=== PATIENT | male | born 1995 | race Caucasian/White ===

== ENCOUNTER 2017-05-02 02:08 | Emergency (ER) | payer OTHER ==
[2017-05-02 02:42] LABS: HEMATOCRIT 40.2 % (37.9-51.0); HEMOGLOBIN 14.2 g/dL (13.5-17.0); HGB HCT DIFFERENCE 2.4; MEAN CORPUSCULAR VOLUME 84 fl (80-97); RED BLOOD COUNT 4.81 10^6/uL (4.35-5.55); WHITE BLOOD COUNT 5.7 10^3/uL (4.0-10.5)
[2017-05-02 02:43] LABS: ABSOLUTE BASOPHILS # (AUTO) 0.1 10^3/uL (0.0-0.2); ABSOLUTE LYMPHOCYTES (AUTO) 1.7 10^3/uL (0.5-4.7); ABSOLUTE MONOCYTES (AUTO) 0.5 10^3/uL (0.1-1.4); ABSOLUTE NEUT (AUTO) 3.4 10^3/uL (1.7-8.2); BASOPHILS % (AUTO) 0.9 % (0-2); EOSINOPHILS % (AUTO) 0.5 % (0-6); LYMPHOCYTES % (AUTO) 30.5 % (13-45); MEAN CORPUSCULAR HEMOGLOBIN 29.4 pg (27.0-33.4); MEAN CORPUSCULAR HGB CONC 35.2 g/dL (32.0-36.0); MONOCYTES % (AUTO) 9.1 % (3-13); RED CELL DISTRIBUTION WIDTH 15.4 % (11.5-14.0)
--- NOTE | 2017-05-02 02:46 | ER Document Report ---
ED Psych Disorder / Suicide - General Chief Complaint: Overdose Stated Complaint: POSSIBLE OVERDOSE Time Seen by Provider: 05/02/17 02:44 Mode of Arrival: Stretcher Information source: Relative TRAVEL OUTSIDE OF THE U.S. IN LAST 30 DAYS: No - HPI Patient complains to provider of: Overdose Onset was: Cannot confirm Suicide Risk Factors: Depressed, Lack of social support, Male, Substance abuse Notes: Patient is a 21-year-old male brought to the emergency room by girlfriend for complaints of substance abuse with possible overdose with unknown intent, patient has a history of substance abuse in the past, he also has a history of bipolar disorder, anxiety, depression, approximately 1 week ago he made a comment about committing suicide to his girlfriend, he is been in drug rehab in the past and was doing quite well up until today, he admits that he took an unknown amount of his gabapentin, when I asked him how many he took he told me 6 or 7, his girlfriend says that he said 9 earlier, he is somnolent but arousable, tachycardic, falls back asleep easily during questioning requiring frequent redirection Past Medical History - General Information source: Patient, Relative - Social History Smoking Status: Unknown if Ever Smoked Family History: Reviewed & Not Pertinent Patient has suicidal ideation: No Patient has homicidal ideation: No Renal/ Medical History: Denies: Hx Peritoneal Dialysis Review of Systems - Review of Systems Constitutional: No symptoms reported EENT: No symptoms reported Cardiovascular: No symptoms reported Respiratory: No symptoms reported Gastrointestinal: No symptoms reported Genitourinary: No symptoms reported Male Genitourinary: No symptoms reported Musculoskeletal: No symptoms reported Skin: No symptoms reported Hematologic/Lymphatic: No symptoms reported Neurological/Psychological: See HPI -: Yes All other systems reviewed and negative Physical Exam - Vital signs Vitals: Temp Pulse Resp BP Pulse Ox 97.4 F 146 H 16 146/74 H 97 05/02/17 02:11 05/02/17 02:11 05/02/17 02:11 05/02/17 02:11 05/02/17 02:11 Interpretation: Tachycardic - General General appearance: Other - Somnolent but arousable In distress: Mild - HEENT Head: Normocephalic, Atraumatic Eyes: Normal Pupils: PERRL - Respiratory Respiratory status: No respiratory distress Chest status: Nontender Breath sounds: Normal Chest palpation: Normal - Cardiovascular Rhythm: Regular, Tachycardia Heart sounds: Normal auscultation Murmur: No - Abdominal Inspection: Normal Distension: No distension Bowel sounds: Normal Tenderness: Nontender Organomegaly: No organomegaly - Back Back: Normal, Nontender - Extremities General upper extremity: Normal inspection General lower extremity: Normal inspection - Neurological [place] Coma Scale Eye Opening: To Voice Bet[place] Coma Scale Verbal: Confused [place] Coma Scale Motor: Obeys Commands Bet[place] Coma Scale Total: 13 - Psychological Associated symptoms: Other - Intoxicated from drug overdose - Skin Skin Temperature: Warm Skin Moisture: Dry Skin Color: Normal Course - Re-evaluation Re-evalutation: 05/02/17 03:51 Patient is a 21-year-old male with a history of depression, bipolar disorder, anxiety, as well as substance abuse, with previous rehab treatment, brought to the emergency room by group mary morales due to intentional overdose of unknown intent, he did mention suicide to her recently but patient is not in an appropriate state to answer any questions at this point as he is quite somnolent and requires frequent arousal to awaken him multiple times during my evaluation, he appears to be quite intoxicated from the medication that he overdosed on, girlfriend does also report that he used cocaine recently approximately a week ago, patient recently moved to the area from [place] where he apparently also has some legal issues that he is to return to for court in about a week, girlfrienparveen LivingstonAdelina was at bedside at time of my initial evaluation and offered most of the information up as patient was unable to provide any information about his history 05/02/17 03:53 A call was placed to [place] poison control by nursing staff, who recommend supportive care, monitor for 6 hours Since patient's unknown overdose was of unknown intent at this point in time and he is too intoxicated to answer any questions appropriately patient was placed on involuntary commitment paperwork and will be held in the emergency room for further evaluation and treatment by mental health team Patient's girlfriend Kelley can be reached at [phone] for further information - Vital Signs Vital signs: Temp Pulse Resp BP Pulse Ox 97.4 F 146 H 13 129/62 H 96 05/02/17 02:11 05/02/17 02:11 05/02/17 03:03 05/02/17 03:03 05/02/17 03:03 - Laboratory Result Diagrams: 05/02/17 02:30 05/02/17 02:30 Laboratory results interpreted by me: 05/02/17 05/02/17 02:30 02:30 RDW 15.4 H Salicylates < 1.0 L Acetaminophen < 10 L - EKG Interpretation by Me EKG shows normal: Sinus rhythm Rate: Tachycardia Critical Care Note - Critical Care Note Total time excluding time spent on procedures (mins): 42 Comments: Patient arrived to the emergency room after intentional overdose of undetermined intent, he is tachycardic and somnolent, requiring frequent reevaluation, IV fluids, and involuntary commitment for possible suicide attempt Discharge - Discharge Clinical Impression: Substance abuse Overdose Qualifiers: Encounter type: initial encounter Injury intent: undetermined intent Qualified Code(s): T50.904A - Poisoning by unspecified drugs, medicaments and biological substances, undetermined, initial encounter
[2017-05-02 02:54] LABS: ALANINE AMINOTRANSFERASE 31 U/L (21-72); ALBUMIN 4.3 g/dL (3.5-5.0); ALKALINE PHOSPHATASE 54 U/L (38-126); ANION GAP 11 (5-19); ASPARTATE AMINO TRANSFERASE 27 U/L (17-59); BILIRUBIN,DIRECT 0.3 mg/dL (0.0-0.4); BILIRUBIN,TOTAL 0.4 mg/dL (0.2-1.3); BLOOD UREA NITROGEN 14 mg/dL (7-20); CALCIUM 9.4 mg/dL (8.4-10.2); CARBON DIOXIDE 22 mmol/L (22-30); CHLORIDE 107 mmol/L (98-107); CREATININE RESULT 0.85 mg/dL (0.52-1.25); GLUCOSE 95 mg/dL (75-110); POTASSIUM 3.6 mmol/L (3.6-5.0); TOTAL PROTEIN 6.4 g/dL (6.3-8.2)
[2017-05-02 02:56] LABS: ALCOHOL < 10 mg/dL (NONE DETECTED)
[2017-05-02] MEDS: NORMAL SALINE 1000 ML 1,000 ML IV PRN ×2 (03:25→04:36)
[2017-05-02] MEDS ORDERED: NORMAL SALINE 1000 ML 1,000 ML IV PRN (04:15)
--- NOTE | 2017-05-02 10:57 | EKG REPORT ---
SEVERITY:- ABNORMAL ECG - SINUS TACHYCARDIA PROBABLE LEFT ATRIAL ABNORMALITY INFERIOR Q WAVES, PROBABLY NORMAL VARIATION BORDERLINE PROLONGED QT INTERVAL : Confirmed by: Yarely Millard MD 02-May-2017 10:56:33
--- NOTE | 2017-05-02 11:42 | ER Document Report ---
Doctor's Note Notes: 05/02/17 11:42 Patient's heart rate and blood pressure have normalized however he is still quite somnolent, wakes up and is able to answer some questions but not all of them and falls back to sleep quite rapidly. Is able to drink ice tea at the bedside. Patient will continue to be observed, currently unable to determine disposition as he is still so somnolent. 05/02/17 15:58 Patient is now awake, vital signs have normalized, when questioned about what he did he states he took multiple gabapentin last night in order to get high. When offered referrals to substance abuse counseling he states he has been in rehab since August. States he does not think it is working. States he does kind of want to quit using drugs but does not think any further referrals in the emergency department will help. Denies suicidal homicidal ideation. States his girlfriend flushed all of his pills down the toilet.
[2017-05-02 11:52] LABS: APPEARANCE,URINE CLEAR; BILIRUBIN,URINE NEGATIVE (NEGATIVE); GLUCOSE, URINE NEGATIVE (NEGATIVE); KETONES,URINE TRACE mg/dL (NEGATIVE); LEUKOCYTE ESTERASE,URINE NEGATIVE (NEGATIVE); NITRITE,URINE NEGATIVE (NEGATIVE); PROTEIN,URINE NEGATIVE (NEGATIVE); URINE SPECIFIC GRAVITY 1.006; UROBILINOGEN,URINE NEGATIVE mg/dL (<2.0)
[2017-05-02 12:09] LABS: URINE BARBITURATES SCREEN NEGATIVE; URINE METHADONE SCREEN NEGATIVE; URINE OPIATES LOW NEGATIVE; URINE PHENCYCLIDINE SCREEN NEGATIVE
[2017-05-02 16:26] VITALS: BP 117/65
== END 2017-05-02 16:28 | disposition home or self-care (01) ==
LOC: ER 02:08
DX: T50.904A Poisoning by unspecified drugs, medicaments and biological substances, undetermined, initial encounter (principal); F31.9 Bipolar disorder, unspecified; F41.9 Anxiety disorder, unspecified; F32.9 Major depressive disorder, single episode, unspecified
CPT/HCPCS: 93005; 99285; 96360; 96361; 36415; 82962; 80307 ×4; 85025; 80053; 81001; 93010; J7030

== ENCOUNTER 2017-10-27 04:53 | Emergency (ER) | payer OTHER ==
--- NOTE | 2017-10-27 05:05 | ER Document Report ---
ED General - General TRAVEL OUTSIDE OF THE U.S. IN LAST 30 DAYS: No <SHANE ROSE - Last Filed: 10/27/17 07:13> <ALEJANDRA OWNG - Last Filed: 10/28/17 15:25> - General Stated Complaint: POSSIBLE OVERDOSE Time Seen by Provider: 10/27/17 05:02 Notes: Patient is a 22-year-old male who presents with complaints of overdosing on Seroquel. It is unclear exactly how long that he did this and it is unclear exactly how many tablets he took. He denies taking any other medications. Patient says he did this to "block away" feelings he had after his girlfriend's fight. He will not admit or deny that he is on her himself. No other complaints at this time. (SHANE ROSE) Past Medical History - Social History Smoking Status: Unknown if Ever Smoked Frequency of alcohol use: Heavy Drug Abuse: None Family History: Reviewed & Not Pertinent Renal/ Medical History: Denies: Hx Peritoneal Dialysis <SHANE ROSE - Last Filed: 10/27/17 07:13> Review of Systems <SHANE ROSE - Last Filed: 10/27/17 07:13> <ALEJANDRA WONG - Last Filed: 10/28/17 15:25> - Review of Systems Notes: My Normal Review Basic REVIEW OF SYSTEMS: CONSTITUTIONAL : Denies fever, chills, or sweats. Denies recent illness. RESPIRATORY: Denies cough, cold, or chest congestion. Denies shortness of breath, difficulty breathing, or wheezing. GASTROINTESTINAL: Denies abdominal pain. Denies nausea, vomiting, or diarrhea. Denies constipation. Last BM: MUSCULOSKELETAL: Denies neck or back pain or joint pain or swelling. SKIN: Denies rash or skin lesions. NEUROLOGICAL: Denies altered mental status or loss of consciousness. Denies headache. Denies weakness or paralysis or loss of use of either side. Denies problems with gait or speech. Denies sensory or motor loss. PSYCHIATRIC: Depression ALL OTHER SYSTEMS REVIEWED AND NEGATIVE. (SHANE ROSE) Physical Exam <SHANE ROSE - Last Filed: 10/27/17 07:13> <ALEJANDRA WONG - Last Filed: 10/28/17 15:25> - Vital signs Vitals: BP Pulse Ox 147/68 H 96 10/27/17 04:58 10/27/17 04:58 - Notes Notes: General Appearance: Patient is awake and alert but sometimes fumbles his words when talking. Vitals: reviewed, See vital signs table. Head: no swelling or tenderness to the head Eyes: PERRL, EOMI, Conjuctiva clear Mouth: No decreasd moisture Throat: No tonsillar inflammation, No airway obstruction, Neck: Supple, no neck tenderness, Lungs: No wheezing, No rales, No rhonci, No accessory muscle use, good air exchange bilaterally. Heart: Tachycardic rate, Regular rythm, No murmur, no rub Abdomen: Normal BS, soft, No rigidity, No abdominal tenderness, No guarding, no rebound, no abdominal masses, no organomegaly Extremities: strength 5/5 in all extremities, good pulses in all extremities, no swelling or tenderness in the extremities, no edema. Skin: warm, dry, appropriate color, no rash Neuro: speech clear, oriented x 3, responds appropriately to most questions. Some nystagmus. Patient is able to move his extremities on his own. Distal sensation intact. Cranial nerves II through XII are intact with the exception of the nystagmus with eye movement. (SHANE ROSE) Course - Laboratory Result Diagrams: 10/27/17 05:00 10/27/17 05:00 <SHANE ROSE - Last Filed: 10/27/17 07:13> - Laboratory Result Diagrams: 10/27/17 05:00 10/27/17 05:00 <ALEJANDRA WONG - Last Filed: 10/28/17 15:25> - Re-evaluation Re-evalutation: 10/27/17 07:13 Patient speech is still jittery and pressured. He still tachycardic. He still having effects from Seroquel. He is not yet medically cleared for psychiatric evaluation. Will have to continue monitor him until the effects of medications wear off. (SHANE ROSE) 10/28/17 15:25 Patient is stable at this time for transfer to the [facility] for further psychiatric evaluation. (ALEJANDRA WONG) - Vital Signs Vital signs: Temp Pulse Resp BP Pulse Ox 98.9 F 96 16 144/64 H 100 10/28/17 15:19 10/28/17 15:19 10/28/17 15:19 10/28/17 15:19 10/28/17 15:19 - Laboratory Laboratory results interpreted by me: 10/27/17 10/27/17 10/27/17 05:00 05:00 10:01 RDW 14.7 H ALT 20 L Urine Protein 30 H Urine Ketones 100 H Ur Leukocyte Esterase LARGE H Salicylates < 1.0 L Acetaminophen < 10 L - EKG Interpretation by Me Additional EKG results interpreted by me: 10/27/17 06:06 EKG is reviewed and interpreted by me. EKG shows normal sinus rhythm with a rate of [address] segment elevation or depression. No ischemic T-wave inversions. Pure interval, QRS duration, QTc intervals are within normal range. Old EKG for comparison is from May 02, 2017. (SHANE ROSE) Discharge <SHANE ROSE - Last Filed: 10/27/17 07:13> <ALEJANDRA WONG - Last Filed: 10/28/17 15:25> - Discharge Clinical Impression: Suicide attempt by overdose Condition: Fair Disposition: [facility]
[2017-10-27] MEDS ORDERED: NORMAL SALINE 1000 ML 1,000 ML IV ONE (05:06)
[2017-10-27 05:15] LABS: ABSOLUTE MONOCYTES (AUTO) 0.6 10^3/uL (0.1-1.4); ABSOLUTE NEUT (AUTO) 3.8 10^3/uL (1.7-8.2); BASOPHILS % (AUTO) 0.7 % (0-2); EOSINOPHILS % (AUTO) 0.6 % (0-6); HEMOGLOBIN 15.1 g/dL (13.5-17.0); LYMPHOCYTES % (AUTO) 30.6 % (13-45); MEAN CORPUSCULAR HEMOGLOBIN 28.6 pg (27.0-33.4); MEAN CORPUSCULAR HGB CONC 34.4 g/dL (32.0-36.0); MEAN CORPUSCULAR VOLUME 83 fl (80-97); MONOCYTES % (AUTO) 9.2 % (3-13); PLATELET COUNT 255 10^3/uL (150-450); RED BLOOD COUNT 5.29 10^6/uL (4.35-5.55); RED CELL DISTRIBUTION WIDTH 14.7 % (11.5-14.0); SEGMENTED NEUTROPHILS % (AUTO) 58.9 % (42-78); TOTAL CELLS COUNTED % (AUTO) 100 %; WHITE BLOOD COUNT 6.4 10^3/uL (4.0-10.5)
[2017-10-27 05:46] LABS: ALANINE AMINOTRANSFERASE 20 U/L (21-72); ALBUMIN 4.4 g/dL (3.5-5.0); ALKALINE PHOSPHATASE 38 U/L (38-126); ANION GAP 10 (5-19); ASPARTATE AMINO TRANSFERASE 18 U/L (17-59); BILIRUBIN,DIRECT 0.3 mg/dL (0.0-0.4); BLOOD UREA NITROGEN 11 mg/dL (7-20); CALCIUM 9.6 mg/dL (8.4-10.2); CARBON DIOXIDE 29 mmol/L (22-30); CHLORIDE 101 mmol/L (98-107); GLUCOSE 99 mg/dL (75-110); POTASSIUM 4.1 mmol/L (3.6-5.0); SODIUM 140.3 mmol/L (137-145); TOTAL PROTEIN 6.4 g/dL (6.3-8.2)
[2017-10-27 05:49] LABS: ACETAMINOPHEN < 10 ug/mL (10-30); ALCOHOL < 10 mg/dL (NONE DETECTED); SALICYLATE < 1.0 mg/dL (2.0-20.0)
--- NOTE | 2017-10-27 09:40 | EKG REPORT ---
SEVERITY:- NORMAL ECG - SINUS RHYTHM : Confirmed by: Shun Foster 27-Oct-2017 09:39:04
--- NOTE | 2017-10-27 10:07 | PSYCHOLOGICAL NOTE ---
Psych Note - Psych Note Psych Note: Reason for consult: suicidal ideation Eval: 0820 Final Dispo: 10:30 am Contact permissions: James Alexandra & Kelley It is a 22-year-old male. Patient reports he was drinking heavily yesterday and got in a fight with his girlfriend. Patient reports his girlfriend gets upset when he drinks. Patient reports he is feeling shaky and attributes this to gabapentin. 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 Patient reports he drinks 80 ounces a day of alcohol. Patient reports he lives with his girlfriend Kelley and gives consent to mental health to speak with her. Phone #[phone]. Patient also gives consent to speak with his father James. Patient reports he was inpatient last year. Patient reports he has bipolar disorder, anxiety, PTSD. Patient reports he is interested in substance use treatment. Patient reports he has a physician at [facility] Dr. Sharif gets Seroquel but has not been taking his bipolar medications. Clinician observed patient appears manic has pressured speech, flight of ideas, and is unable to have a logical/linear thought processes. Patient states he has a history of PTSD , Bipolar disorder, anxiety, depression. Per chart review: Patient disclosed suicidal ideation at admissions stating he overdosed on seroquel on purpose, after fighting with his girlfriend. Clinician observed patient's drug screen results are all negative indicating patient's current symptoms are not relatively active to substance intoxication. Collateral information: James Alexandra phone #[phone] Patient's father reports patient is currently on probation. 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 Patient's father reports patient is probably worried about getting in trouble because he is using while on probation. Patient's father reports his girlfriend contacted him to tell him that he was overdoing prescription drugs, lying and is convincing. Patient's father reports the girlfriend does not want him to return to the home ( as they are now no longer together). Patient's father reports he has not seen his son since last spring as he lives in [place] and his son cut off medication. Patient's father reports patient was excepted into 4 year college with [facility] benefits. Patient's father reports patient has a history of bipolar and explained he is currently as manic because he is unmedicated. Patient's father reports patient's gf contacted the dad because she was concerned that he was not taking his meds and she agreed he was manic as well. Patient's father reports he was in [facility] for 3 months and states it was not helpful. Patient's father reports he would like patient to return to [place] so he could help him, but states he wants him to get treatment that actually helps first. Medication recommendation made by [facility] psychiatric provider Dr. Slick MD includes: 1. Begin Zyprexa 5 mg twice a day for mood stabilization 2. Begin Cogentin 1 mg daily for side effects Diagnosis: Per Hx296.80 ( F31.9) Bipolar Disorder ( current episode manic) Per Hx 309.81 (F43.10) Post traumatic stress disorder Impression/Plan: Recommendation to maintain involuntary commitment due to patient meeting [place] GS 122C. Patient is experiencing chirag, has unmanaged Bipolar Disorder, he has not been taking medications. He currently presents with flight of ideas, pressured speech, impaired judgment and cognition. Clinician observed patient is responding to internal stimuli. Consulted with Dr. Burton regarding the management and care of patient.
--- NOTE | 2017-10-27 10:14 | ER Document Report ---
Doctor's Note Notes: 10/27/17 10:11 Medical rounds: Chart reviewed and patient interviewed briefly. He is still mildly tachycardic, although this has improved in the last several hours. Laboratory values are satisfactory. On examination, he is alert, oriented, and cooperative. He verbalizes no specific somatic complaint. He is still exhibiting some mild toxicity from his overdose but otherwise is medically stable. Psychosocial evaluation and recommendations are pending.
[2017-10-27] MEDS ORDERED: BENZTROPINE MESYLATE 1 MG TABLET PO ONE (10:30)
[2017-10-27] MEDS ORDERED: OLANZAPINE 5 MG TABLET PO ONE (10:30)
[2017-10-27 10:33] LABS: APPEARANCE,URINE CLEAR; BILIRUBIN,URINE NEGATIVE (NEGATIVE); COLOR,URINE STRAW; GLUCOSE, URINE NEGATIVE (NEGATIVE); KETONES,URINE 100 mg/dL (NEGATIVE); LEUKOCYTE ESTERASE,URINE LARGE (NEGATIVE); NITRITE,URINE NEGATIVE (NEGATIVE); PROTEIN,URINE 30 mg/dL (NEGATIVE); URINE SPECIFIC GRAVITY 1.016; UROBILINOGEN,URINE NEGATIVE mg/dL (<2.0)
[2017-10-27 10:39] LABS: URINE AMPHETAMINES SCREEN NEGATIVE; URINE BARBITURATES SCREEN NEGATIVE; URINE BENZODIAZEPINES SCREEN NEGATIVE; URINE COCAINE SCREEN NEGATIVE; URINE MARIJUANA (THC) SCREEN NEGATIVE; URINE METHADONE SCREEN NEGATIVE; URINE PHENCYCLIDINE SCREEN NEGATIVE
[2017-10-27] MEDS ORDERED: NICOTINE 21 MG/24 HR PATCH.TD24 TD ONE (13:57)
[2017-10-27] MEDS: OLANZAPINE 5 MG TABLET PO SCH (17:53)
--- NOTE | 2017-10-28 09:47 | ER Document Report ---
Doctor's Note Notes: 10/28/17 09:46 Patient has been seen and evaluated resting comfortably no acute distress. Laboratory values previous provider note and vital signs have been evaluated. Patient otherwise looks to be stable for disposition/transfer.
[2017-10-28] MEDS ORDERED: BENZTROPINE MESYLATE 1 MG TABLET PO SCH (10:00)
[2017-10-28] MEDS: OLANZAPINE 5 MG TABLET PO SCH (10:20)
[2017-10-28 15:20] VITALS: BP 144/64
--- NOTE | 2017-10-28 17:17 | PSYCHOLOGICAL NOTE ---
Psych Note - Psych Note Psych Note: Reason for consult: suicidal ideation Eval: 0840 Final Dispo: 10:00 am Contact permissions: James Alexandra & Kelley Patient is a 22-year-old male. Patient reports he has not called his dad back because he does not want to talk to him. Patient reports his dad was an authoritarian figure and would call him 10 times a day. Patient reports his sister also does not speak with his dad and states he will call him when he is ready. Patient reports this morning he could not eat food because he was too shaky. Patient reports he thinks he is hallucinating because he saw cats in the vents but wondered why would a cat be here. Patient reports he has been having conversations with himself and feeling like he was smoking a cigarette and then realizing he was staring at the wall. Patient reports he thinks it is withdrawal symptoms from alcohol because he drinks 12 packs of 8 ounce beers every day. Patient reports his girlfriend is 31 years old and told him she feels like she is taking care of the baby because whenever she leaves the home he either fights does drugs or ends up in skilled nursing. Patient reports his girlfriend applied to be an "in home nurse" so she could get paid to take care of him and stated it was denied. Patient reports his girlfriend has 2 children ages 10 and 13 and states she does not want him to live in the house because she is too busy taking care of him. Patient reports he does want to get help for the alcohol and says he would go to [facility] 3 times a week again. Patient reports he wants to go to [facility] and was given V[facility] rehab from the . Patient reports when he was a teenager he had ADHD meds because he was dual diagnosis for ADHD and bipolar. Patient reports he took Vyvanse throughout high school and stated that he had to lower the medication and eventually stopped so he can join the . Patient reports in the past he got naltrexone for the alcohol cravings and it was helpful. Patient reports he does not have any now. Patient reports he realizes he is manic. Medication recommendation made by [facility] psychiatric provider Dr. Slick MD includes: 1. Begin Zyprexa 5 mg twice a day for mood stabilization 2. Begin Cogentin 1 mg daily for side effects Diagnosis: Per Hx296.80 ( F31.9) Bipolar Disorder ( current episode manic) Per Hx 309.81 (F43.10) Post traumatic stress disorder Impression/plan: Recommendation to maintain involuntary commitment due to patient meeting criteria [place] GS 122C. Patient still appears manic, is responding to internal stimuli and he is seeing things such as cats and thinking he is smoking a cigarette when he is not. Patient has pressured speech , he is not able to take pauses between sentences and requires redirection in conversation. Attending physician in agreement with plan. Consulted with Dr. Burton regarding the management and care of patient.
== END 2017-10-28 15:35 ==
LOC: ER 04:53
DX: T43.592A Poisoning by other antipsychotics and neuroleptics, intentional self-harm, initial encounter (principal); R00.0 Tachycardia, unspecified; H55.00 Unspecified nystagmus
CPT/HCPCS: 93005; 99285; 96360; 36415; 80307 ×4; 85025; 80053; 81001; 93010; J7030